=== PATIENT | female | born 1955 ===

== ENCOUNTER 2023-07-17 06:00 | Outpatient (CLI) | payer MEDICARE, SELFPAY | END 2023-07-17 06:01 | LOC: SPT 08-04 14:12 | PROVIDERS: Visit Provider Student in an Organized Health Care Education/Training Program | DX: M17.0 Bilateral primary osteoarthritis of knee (principal) | CPT/HCPCS: 20610; 97760; 99203; J3301; L1851 ==

== ENCOUNTER → 2023-07-17 11:17 | Outpatient (BNVA) | payer MEDICARE, SELFPAY | PROVIDERS: Visit Provider Physician Assistant | DX: M17.0 Bilateral primary osteoarthritis of knee | CPT/HCPCS: 73560; 73565 ==